=== PATIENT | male | born 1935 | race Caucasian/White ===

== ENCOUNTER 2018-02-22 06:39 | Day surgery (SDC) | payer MEDICARE, MEDICAID ==
[~2018-02-22 06:39] MED LIST: ACETAMINOPHEN 325 MG TAB PO; SLF 3 ML SYR IV
[2018-02-22] MEDS: BSS with VANC/TOB/EPI for EYE CASES IR ×2 (07:00)
[2018-02-22] MEDS ORDERED: PHENYLEPHRINE HCL 10 % OPHTH. SOL 5ML OS ×2 (07:00)
[2018-02-22] MEDS: SLF 3 ML SYR IV ×2 (07:15)
[2018-02-22] MEDS: LIDOCAINE 3.5 % 1ML OPHTH TOPICAL GEL OU ×2 (07:30)
[2018-02-22] MEDS: OFLOXACIN 0.3 % (OCUFLOX) OPTH SOL 5ML OS ×2 (07:35)
[2018-02-22] MEDS: TROPICAMIDE 1% OPHTH SOLN 2ML OS ×2 (07:35)
[2018-02-22] MEDS: PHENYLEPHRINE 2.5% OPHTH SOL 2ML OS ×2 (07:35)
[2018-02-22] MEDS: CYCLOPENTOLATE 2% OPHTH SOLN 2ML BTL OS ×2 (07:35)
[2018-02-22] MEDS ORDERED: MIDAZOLAM INJ 2 MG/2 ML VIAL (J2250) As Ordered ×2 (08:30)
[2018-02-22] MEDS ORDERED: fentaNYL 100 MCG/2 ML INJECTION (J3010) As Ordered ×2 (08:30)
[2018-02-22] MEDS: POVIDONE-IODINE 5% OPHTH PREP SOL 30ML As Ordered ×2 (08:30)
[2018-02-22] MEDS: TRIAMCINOLONE PRES FR 40 MG/ML 1ML(TRIESENCE)(OR EYE ONLY)(J3300 PER 1MG) As Ordered ×2 (08:38)
[2018-02-22] MEDS: HEALON DUET (HEALON 10MG/ML 0.55ML & HEALON ENDOCOAT 30MG/ML 0.85ML) As Ordered ×2 (08:38)
[2018-02-22] MEDS: MOXIFLOXACIN IN BSS 0.25MG/0.25ML INTRACAMERAL INJ (OR EYE ONLY)(J2280) As Ordered (08:38)
[2018-02-22] MEDS: LIDOCAINE 1% SDV 5 ML VIAL As Ordered ×2 (08:38)
[2018-02-22] MEDS ORDERED: TRIMETHOBENZAMIDE 300 MG CAP PO ×2 (09:15)
[2018-02-22] MEDS ORDERED: AcetaZOLAMIDE 500 MG ER CAP PO ×2 (09:15)
[2018-02-26 10:26] LABS: BEDSIDE GLUCOSE 129 MG/DL (83-110)
== END 2018-02-22 09:45 | disposition home or self-care (01) ==
LOC: M SDC 06:39
DX: H25.9 Unspecified age-related cataract (principal); H57.03 Miosis; H21.81 Floppy iris syndrome; I10 Essential (primary) hypertension; E11.9 Type 2 diabetes mellitus without complications; E78.5 Hyperlipidemia, unspecified; Z79.82 Long term (current) use of aspirin; Z79.899 Other long term (current) drug therapy
CPT/HCPCS: 66982

== ENCOUNTER → 2023-08-09 | Outpatient (REF) | payer OTHER, MEDICAID ==
[~2023-08-09] MED LIST changes: +ACCU5TAB7 PO; -ACETAMINOPHEN 325 MG TAB PO; +ANTI25TA PO; +ASPI81TA85 PO; +DOCU5LIQ PO; +FLOM0.4C39 PO; +FOLI1TAB86 PO; +GLIP5TAB20; +GLUC500T PO; +LEVO75TA6 PO; +OMEP40CA4 PO; -SLF 3 ML SYR IV; +TRAD5TAB PO; +VITA50005; +ZOCO20TA PO
== END ==
LOC: M SFHCDERM 13:57
PROVIDERS: ATTEND Physician Assistant
DX: D04.39 Carcinoma in situ of skin of other parts of face (principal)

== ENCOUNTER → 2024-01-31 | Outpatient (CLI) | payer OTHER, MEDICAID | LOC: M ONCR 14:33 | PROVIDERS: ATTEND General Practice | DX: C44.319 Basal cell carcinoma of skin of other parts of face (principal); D04.39 Carcinoma in situ of skin of other parts of face; Z71.2 Person consulting for explanation of examination or test findings; Z79.82 Long term (current) use of aspirin; Z79.84 Long term (current) use of oral hypoglycemic drugs; Z79.890 Hormone replacement therapy; Z79.899 Other long term (current) drug therapy ==

== ENCOUNTER 2024-02-09 13:44 | Outpatient (RCR) | payer OTHER, MEDICAID | END 2024-03-09 | LOC: M ONCR 13:44 | PROVIDERS: ATTEND General Practice | DX: Z51.0 Encounter for antineoplastic radiation therapy (principal); C44.319 Basal cell carcinoma of skin of other parts of face ==

== ENCOUNTER 2024-03-16 14:15 | Outpatient (RCR) | payer OTHER, MEDICAID | END 2024-04-08 | LOC: M ONCR 14:15 | PROVIDERS: ATTEND General Practice | DX: Z51.0 Encounter for antineoplastic radiation therapy (principal); C44.319 Basal cell carcinoma of skin of other parts of face ==

== ENCOUNTER → 2024-03-29 | Outpatient (CLI) | payer OTHER, MEDICAID | LOC: M ONCR 13:00 | PROVIDERS: ATTEND General Practice | DX: C44.319 Basal cell carcinoma of skin of other parts of face (principal); C44.329 Squamous cell carcinoma of skin of other parts of face; Z92.3 Personal history of irradiation; Z71.2 Person consulting for explanation of examination or test findings; Z79.890 Hormone replacement therapy; Z79.899 Other long term (current) drug therapy; Z79.82 Long term (current) use of aspirin ==

== ENCOUNTER → 2024-04-17 | Outpatient (CLI) | payer OTHER, MEDICAID | LOC: M ONCR 15:08 | PROVIDERS: ATTEND General Practice | DX: C44.319 Basal cell carcinoma of skin of other parts of face (principal) ==

== ENCOUNTER 2024-07-13 12:07 | Inpatient (IN) | payer OTHER, MEDICAID ==
[~2024-07-13] VITALS: Ht 167.6 cm; Wt 53.9 kg
[2024-07-13] VITALS (11 sets, daily range): BP systolic 85–128; BP diastolic 49–70; TEMP 97.2–98; O2SAT 82–97
[2024-07-13 13:11] LABS: BASO % 0.2 % (0.0-1.0); HEMATOCRIT 40.5 % (42.0-52.0); HEMOGLOBIN 13.3 g/dl (13.5-17.5); LYMPH # 0.9 10^3/uL (1.5-5.0); LYMPH % 5.8 % (24.0-44.0); MEAN CORPUSCULAR HEMOGLOBIN 29.9 pg (27.0-33.0); MEAN CORPUSCULAR HGB CONC 32.8 g/dl (32.0-36.5); MONO # 1.6 10^3/uL (0.0-0.8); MONO % 10.7 % (2.0-8.0); NEUTROPHILS # 12.2 10^3/uL (1.5-8.5); NEUTROPHILS % 82.1 % (36.0-66.0); PLATELET COUNT, AUTOMATED 233 10^3/uL (150-450); RED BLOOD COUNT 4.45 10^6/uL (4.30-6.10); WHITE BLOOD COUNT 14.9 10^3/uL (4.0-10.0)
[2024-07-13 13:11] LABS: VENOUS HCO3 16.9 MMOL/L (23.0-27.0); VENOUS O2 SATURATION 83.3 % (60.0-80.0); VENOUS PARTIAL PRESSURE CO2 40.6 mmHg (38.0-50.0); VENOUS PARTIAL PRESSURE O2 53.6 mmHg (30.0-50.0); VENOUS PH 7.237 UNITS (7.330-7.430); VENOUS STANDARD HCO3 16.4 MMOL/L; VENOUS TOTAL CO2 18.1 MMOL/L (24.0-28.0)
[2024-07-13 14:14] LABS: HEMOGLOBIN A1c > 14.0 % (4.0-6.0)
[2024-07-13 14:24] LABS: CK-MB VALUE MASS 34.4 NG/ML (<3.6); ETHYL ALCOHOL (ETHANOL) < 0.003 % (0.000-0.010)
[2024-07-13] MEDS ORDERED: SEMA14TA2 PO (14:25)
[2024-07-13] MEDS ORDERED: GLIP2.5T6 PO (14:25)
[2024-07-13] MEDS ORDERED: ALEN70TA87 PO (14:25)
[2024-07-13] MEDS ORDERED: LEVO100T5 PO (14:25)
[2024-07-13] MEDS ORDERED: SIMV20TA22 PO (14:25)
[2024-07-13] MEDS ORDERED: TAMS1CAP17 PO (14:25)
[2024-07-13] MEDS ORDERED: METF-838 PO (14:25)
[2024-07-13 14:28] LABS: THYROID STIMULATING HORMONE 5.664 uIU/ML (0.55-4.78)
[2024-07-13 14:47] LABS: ACETONE/KETONE > 4.50 MMOL/L (0.02-0.27); ALBUMIN 3.9 G/DL (3.2-5.2); ALKALINE PHOSPHATASE 133 U/L (46-116); ALT/SGPT 75 U/L (7.0-40); AST/SGOT 143 U/L (<34); BILIRUBIN,DIRECT 0.4 MG/DL (<0.4); BILIRUBIN,TOTAL 1.6 MG/DL (0.3-1.2); BLOOD UREA NITROGEN 80 MG/DL (9-23); CALCIUM LEVEL 10.7 MG/DL (8.3-10.6); CARBON DIOXIDE LEVEL 23 MMOL/L (20-31); CHLORIDE LEVEL 98 MMOL/L (98-107); CPK CREATINE PHOSPHOKINASE 7109 U/L (46-171); CREATININE FOR GFR 1.99 MG/DL (0.70-1.30); GLOMERULAR FILTRATION RATE 33.9 (>35); GLUCOSE, FASTING 664 MG/DL (74-106); MB/CK RELATIVE INDEX 0.48 (< OR =4); POTASSIUM SERUM 5.2 MMOL/L (3.5-5.1); SODIUM LEVEL 138 MMOL/L (136-145); TOTAL PROTEIN 7.2 G/DL (5.7-8.2)
[2024-07-13] MEDS ORDERED: INSULIN IV RATE CHANGE DOCUMENTATION ML/HR XX SCH (14:55)
[2024-07-13] MEDS: HumuLIN R (REGULAR) INSULIN (NovoLIN R) **100U/ML** PER UNIT IV ONE (15:10)
[2024-07-13] MEDS: INSULIN REGULAR IN 0.9 % NACL 100 UNIT in IV 1 EA IV SCH (15:14)
[2024-07-13] MEDS ORDERED: ALBUTEROL SULFATE 2.5MG/0.5ML INH NEB SOLN NEB PRN (15:30)
[2024-07-13] MEDS ORDERED: HOME MED LIST COMPLETE! XX SCH (15:55)
[2024-07-13] MEDS: LR 1,000 ML IV ONE (16:29)
[2024-07-13] MEDS: KCL 20MEQ IN 0.45NS 1000ML 1,000 ML IV SCH (17:40)
[2024-07-13 18:34] LABS: VENOUS BASE EXCESS -5.4 (-2.0-2.0); VENOUS HCO3 21.2 MMOL/L (23.0-27.0); VENOUS O2 SATURATION 98.7 % (60.0-80.0); VENOUS PARTIAL PRESSURE O2 161.8 mmHg (30.0-50.0); VENOUS STANDARD HCO3 20.1 MMOL/L; VENOUS TOTAL CO2 22.5 MMOL/L (24.0-28.0)
[2024-07-13 19:03] LABS: CALCIUM LEVEL 10.9 MG/DL (8.3-10.6); CREATININE FOR GFR 1.95 MG/DL (0.70-1.30); GLOMERULAR FILTRATION RATE 34.7 (>35); POTASSIUM SERUM 4.7 MMOL/L (3.5-5.1)
[2024-07-13 20:03] LABS: PHOSPHORUS LEVEL 7.7 MG/DL (2.4-5.1)
[2024-07-13] MEDS: LEVEMIR (INSULIN DETEMIR) 1 UNITS/0.01ML SC SCH (21:10)
[2024-07-13] MEDS: HEPARIN SOD (PORCINE) 5000UNITS/ML 1ML VIAL/SYRINGE SC SCH (21:10)
[2024-07-13] MEDS ORDERED: DEXTROSE 50% 50ML SYRINGE As Ordered ONE (22:12)
[2024-07-13] MEDS ORDERED: GLUCOSE 4 GM CHEW PO PRN (22:15)
[2024-07-13] MEDS: DEXTROSE 50% 50ML SYRINGE IV ONE (22:15)
[2024-07-13] MEDS ORDERED: GLUCAGON INJ 1MG VIAL SC PRN (22:15)
[2024-07-13 22:19] LABS: CALCIUM LEVEL 10.6 MG/DL (8.3-10.6); CREATININE FOR GFR 1.87 MG/DL (0.70-1.30); GLOMERULAR FILTRATION RATE 36.4 (>35); POTASSIUM SERUM 4.5 MMOL/L (3.5-5.1)
[2024-07-13] MEDS: DEXTROSE 50% 50ML SYRINGE IV PRN (22:19)
[2024-07-13] MEDS: KCL 40MEQ IN D5/0.45NS 1000ML 1,000 ML IV SCH (22:53)
[2024-07-13] MEDS ORDERED: POTASSIUM CHLORIDE INJ 40 MEQ in D5W/LR 1,000 ML IV SCH (23:00)
[2024-07-14] VITALS (9 sets, daily range): BP systolic 96–125; BP diastolic 54–92; TEMP 97.2–99.4; O2SAT 96–97
[2024-07-14 00:33] LABS: CREATININE FOR GFR 1.84 MG/DL (0.70-1.30); GLOMERULAR FILTRATION RATE 37.1 (>35); POTASSIUM SERUM 4.4 MMOL/L (3.5-5.1)
[2024-07-14 03:43] LABS: CALCIUM LEVEL 9.3 MG/DL (8.3-10.6); CREATININE FOR GFR 1.79 MG/DL (0.70-1.30); GLOMERULAR FILTRATION RATE 38.3 (>35); POTASSIUM SERUM 4.9 MMOL/L (3.5-5.1)
[2024-07-14 06:05] LABS: HEMOGLOBIN 11.5 g/dl (13.5-17.5); MEAN CORPUSCULAR HEMOGLOBIN 28.8 pg (27.0-33.0); MEAN CORPUSCULAR HGB CONC 31.9 g/dl (32.0-36.5); MEAN CORPUSCULAR VOLUME 90.2 fl (80.0-96.0); PLATELET COUNT, AUTOMATED 201 10^3/uL (150-450); RED BLOOD COUNT 3.99 10^6/uL (4.30-6.10); WHITE BLOOD COUNT 13.3 10^3/uL (4.0-10.0)
[2024-07-14 06:56] LABS: BILIRUBIN,TOTAL 1.1 MG/DL (0.3-1.2); CALCIUM LEVEL 8.9 MG/DL (8.3-10.6); CREATININE FOR GFR 1.66 MG/DL (0.70-1.30); GLOMERULAR FILTRATION RATE 41.7 (>35); POTASSIUM SERUM 5.3 MMOL/L (3.5-5.1); TOTAL PROTEIN 5.8 G/DL (5.7-8.2)
[2024-07-14] MEDS: D5W/LR 1,000 ML IV SCH (07:15)
[2024-07-14] MEDS: INSULIN LISPRO (NovoLOG) PER UNIT SC SCH ×2 (08:41→20:36)
[2024-07-14] MEDS: LEVEMIR (INSULIN DETEMIR) 1 UNITS/0.01ML SC SCH ×2 (08:41→21:00)
[2024-07-14] MEDS: LR 1,000 ML IV SCH (08:42)
[2024-07-14 10:47] LABS: CALCIUM LEVEL 8.6 MG/DL (8.3-10.6); CREATININE FOR GFR 1.58 MG/DL (0.70-1.30); GLOMERULAR FILTRATION RATE 44.2 (>35); POTASSIUM SERUM 4.9 MMOL/L (3.5-5.1)
[2024-07-14] MEDS: LEVOTHYROXINE 100MCG (0.1MG) 5ML SDV PF (SOLUTION FORM) IV SCH (18:12)
[2024-07-15] VITALS (7 sets, daily range): BP systolic 94–120; BP diastolic 52–60; TEMP 97.6–98.6; O2SAT 93–99
[2024-07-15] MEDS: D5W/LR 1,000 ML IV SCH (04:20)
[2024-07-15] MEDS: DEXTROSE 50% 50ML SYRINGE IV STA (04:24)
[2024-07-15 04:52] LABS: HEMATOCRIT 33.6 % (42.0-52.0); HEMOGLOBIN 10.8 g/dl (13.5-17.5); MEAN CORPUSCULAR HEMOGLOBIN 29.3 pg (27.0-33.0); MEAN CORPUSCULAR HGB CONC 32.1 g/dl (32.0-36.5); MEAN CORPUSCULAR VOLUME 91.3 fl (80.0-96.0); PLATELET COUNT, AUTOMATED 168 10^3/uL (150-450); RED BLOOD COUNT 3.68 10^6/uL (4.30-6.10); WHITE BLOOD COUNT 10.8 10^3/uL (4.0-10.0)
[2024-07-15 05:36] LABS: ALBUMIN 2.7 G/DL (3.2-5.2); ALKALINE PHOSPHATASE 80 U/L (46-116); ALT/SGPT 56 U/L (7.0-40); AST/SGOT 114 U/L (<34); BILIRUBIN,TOTAL 1.3 MG/DL (0.3-1.2); BLOOD UREA NITROGEN 47 MG/DL (9-23); CALCIUM LEVEL 8.5 MG/DL (8.3-10.6); CARBON DIOXIDE LEVEL 30 MMOL/L (20-31); CHLORIDE LEVEL 108 MMOL/L (98-107); CPK CREATINE PHOSPHOKINASE 1959 U/L (46-171); CREATININE FOR GFR 1.05 MG/DL (0.70-1.30); GLOMERULAR FILTRATION RATE > 60.0 (>35); GLUCOSE, FASTING 163 MG/DL (74-106); SODIUM LEVEL 141 MMOL/L (136-145); TOTAL PROTEIN 5.3 G/DL (5.7-8.2)
[2024-07-15] MEDS: LEVEMIR (INSULIN DETEMIR) 1 UNITS/0.01ML SC SCH (09:29)
[2024-07-15] MEDS: INSULIN LISPRO (NovoLOG) PER UNIT SC SCH ×2 (12:33→21:00)
[2024-07-16 03:48] VITALS: BP 113/57; TEMP 97.4; O2SAT 96
[2024-07-16 08:00] VITALS: BP 100/60; TEMP 98; O2SAT 96
[2024-07-16 12:00] VITALS: BP 106/57; TEMP 97.1; O2SAT 96
[2024-07-16 16:00] VITALS: BP 104/56; TEMP 97.3; O2SAT 96
[2024-07-16 20:21] VITALS: BP 108/57; TEMP 97.3; O2SAT 97
[2024-07-16] MEDS: SIMVASTATIN 20 MG TAB PO SCH (22:10)
[2024-07-16 23:27] VITALS: BP 116/59; TEMP 97.6; O2SAT 97
[2024-07-17 04:16] VITALS: BP 114/58; TEMP 98.1; O2SAT 97
[2024-07-17] MEDS: LEVOTHYROXINE 100MCG TABLET (0.1MG) PO SCH (05:17)
[2024-07-17 08:00] VITALS: BP_SYST 130; BP_SYST 153; BP_DIAS 67; BP_DIAS 87; TEMP 97.2; TEMP 97.9; O2SAT 96
[2024-07-17] MEDS: TAMSULOSIN 0.4 MG CAP PO SCH (08:19)
[2024-07-17] MEDS: LEVEMIR (INSULIN DETEMIR) 1 UNITS/0.01ML SC SCH ×2 (08:19→21:25)
[2024-07-17] MEDS ORDERED: LEVEMIR (INSULIN DETEMIR) 1 UNITS/0.01ML SC SCH ×2 (09:00→21:00)
[2024-07-17 11:41] VITALS: BP 111/56; O2SAT 97
[2024-07-17 11:48] VITALS: BP 147/70; TEMP 97.1; O2SAT 96
[2024-07-17] MEDS: glipiZIDE XL 5 MG TABCR PO SCH (13:28)
[2024-07-17 16:00] VITALS: BP 113/56; TEMP 97.5; O2SAT 96
[2024-07-17] MEDS: INSULIN LISPRO (NovoLOG) PER UNIT SC SCH (17:46)
[2024-07-17 19:00] VITALS: BP 124/61; TEMP 98; O2SAT 96
[2024-07-18 03:42] VITALS: BP 106/51; TEMP 97.6; O2SAT 96
[2024-07-18 07:21] LABS: BASO % 0.3 % (0.0-1.0); EOS # 0.2 10^3/uL (0.0-0.5); EOS % 1.6 % (0.0-3.0); HEMATOCRIT 34.4 % (42.0-52.0); HEMOGLOBIN 10.9 g/dl (13.5-17.5); LYMPH # 1.7 10^3/uL (1.5-5.0); MEAN CORPUSCULAR HEMOGLOBIN 29.3 pg (27.0-33.0); MEAN CORPUSCULAR HGB CONC 31.7 g/dl (32.0-36.5); MEAN CORPUSCULAR VOLUME 92.5 fl (80.0-96.0); MONO % 10.4 % (2.0-8.0); NEUTROPHILS # 6.7 10^3/uL (1.5-8.5); PLATELET COUNT, AUTOMATED 219 10^3/uL (150-450); RED BLOOD COUNT 3.72 10^6/uL (4.30-6.10); WHITE BLOOD COUNT 9.9 10^3/uL (4.0-10.0)
[2024-07-18 07:49] VITALS: BP 126/62; TEMP 98; O2SAT 94
[2024-07-18 07:49] LABS: BLOOD UREA NITROGEN 22 MG/DL (9-23); CALCIUM LEVEL 8.3 MG/DL (8.3-10.6); CARBON DIOXIDE LEVEL 31 MMOL/L (20-31); CHLORIDE LEVEL 106 MMOL/L (98-107); GLOMERULAR FILTRATION RATE > 60.0 (>35); GLUCOSE, FASTING 45 MG/DL (74-106); POTASSIUM SERUM 3.4 MMOL/L (3.5-5.1); SODIUM LEVEL 140 MMOL/L (136-145)
[2024-07-18] MEDS ORDERED: LEVEMIR (INSULIN DETEMIR) 1 UNITS/0.01ML SC SCH ×2 (09:00→21:00)
[2024-07-18] MEDS: HEPARIN SOD (PORCINE) 5000UNITS/ML 1ML VIAL/SYRINGE SC SCH (10:51)
[2024-07-18] MEDS: INSULIN LISPRO (NovoLOG) PER UNIT SC SCH (12:21)
[2024-07-18 16:00] VITALS: BP 110/55; TEMP 98.6; O2SAT 94
[2024-07-18] MEDS: MOM 30ML SUSPENSION UDC PO ONE (18:01)
[2024-07-18] MEDS: metFORMIN (GLUCOPHAGE) 500MG TAB PO SCH (18:01)
[2024-07-18 19:34] VITALS: BP 108/55; TEMP 98.5; O2SAT 96
[2024-07-18] MEDS: LEVEMIR (INSULIN DETEMIR) 1 UNITS/0.01ML SC SCH (20:52)
[2024-07-18] MEDS: SENOKOT S TAB PO SCH (20:52)
[2024-07-18 23:51] VITALS: BP 119/58; TEMP 98.1; O2SAT 98
[2024-07-19 03:47] VITALS: BP 117/59; TEMP 98.2; O2SAT 96
[2024-07-19 06:22] LABS: BASO % 0.4 % (0.0-1.0); EOS # 0.1 10^3/uL (0.0-0.5); EOS % 1.2 % (0.0-3.0); HEMATOCRIT 35.4 % (42.0-52.0); HEMOGLOBIN 11.1 g/dl (13.5-17.5); LYMPH # 1.1 10^3/uL (1.5-5.0); LYMPH % 14.5 % (24.0-44.0); MEAN CORPUSCULAR HEMOGLOBIN 29.1 pg (27.0-33.0); MEAN CORPUSCULAR HGB CONC 31.4 g/dl (32.0-36.5); MEAN CORPUSCULAR VOLUME 92.9 fl (80.0-96.0); MONO # 0.8 10^3/uL (0.0-0.8); MONO % 10.9 % (2.0-8.0); NEUTROPHILS # 5.3 10^3/uL (1.5-8.5); NEUTROPHILS % 70.2 % (36.0-66.0); PLATELET COUNT, AUTOMATED 213 10^3/uL (150-450); RED BLOOD COUNT 3.81 10^6/uL (4.30-6.10); WHITE BLOOD COUNT 7.6 10^3/uL (4.0-10.0)
[2024-07-19 06:50] LABS: BLOOD UREA NITROGEN 17 MG/DL (9-23); CALCIUM LEVEL 8.8 MG/DL (8.3-10.6); CARBON DIOXIDE LEVEL 31 MMOL/L (20-31); CHLORIDE LEVEL 104 MMOL/L (98-107); CREATININE FOR GFR 0.89 MG/DL (0.70-1.30); GLOMERULAR FILTRATION RATE > 60.0 (>35); GLUCOSE, FASTING 169 MG/DL (74-106); POTASSIUM SERUM 4.7 MMOL/L (3.5-5.1); SODIUM LEVEL 139 MMOL/L (136-145)
[2024-07-19 07:52] VITALS: BP 118/58; TEMP 98; O2SAT 98
[2024-07-19] MEDS ORDERED: LANTINJ4 SC (10:49)
[2024-07-19] MEDS ORDERED: LANC30MI XX (10:49)
[2024-07-19] MEDS ORDERED: ALCOPAD25 TOP (10:49)
[2024-07-19] MEDS ORDERED: BLOOKIT21 XX (10:49)
[2024-07-19] MEDS ORDERED: GLUC1TES2 XX (10:49)
[2024-07-19] MEDS ORDERED: PEN-308 SC (10:49)
[2024-07-19 12:00] VITALS: BP 116/60; TEMP 98.2; O2SAT 97
[2024-07-19] MEDS ORDERED: glipiZIDE XL 5 MG TABCR PO SCH (12:00)
[2024-07-19 15:02] VITALS: BP 112/62; TEMP 98.2; O2SAT 97
[2024-07-19] MEDS: MOM 30ML SUSPENSION UDC PO ONE (17:52)
[2024-07-19] MEDS: BISACODYL 10MG SUPP PR ONE (17:52)
[2024-07-19 20:26] VITALS: BP 111/63; TEMP 98.1; O2SAT 97
[2024-07-20 04:32] VITALS: BP 113/65; TEMP 98.1; O2SAT 96
[2024-07-20 06:43] LABS: BASO % 0.3 % (0.0-1.0); EOS # 0.3 10^3/uL (0.0-0.5); HEMATOCRIT 34.5 % (42.0-52.0); HEMOGLOBIN 10.8 g/dl (13.5-17.5); LYMPH % 14.7 % (24.0-44.0); MEAN CORPUSCULAR HEMOGLOBIN 29.3 pg (27.0-33.0); MEAN CORPUSCULAR HGB CONC 31.3 g/dl (32.0-36.5); MEAN CORPUSCULAR VOLUME 93.8 fl (80.0-96.0); MONO % 15.1 % (2.0-8.0); NEUTROPHILS # 4.1 10^3/uL (1.5-8.5); NEUTROPHILS % 61.9 % (36.0-66.0); PLATELET COUNT, AUTOMATED 237 10^3/uL (150-450); RED BLOOD COUNT 3.68 10^6/uL (4.30-6.10); WHITE BLOOD COUNT 6.5 10^3/uL (4.0-10.0)
[2024-07-20 06:53] LABS: BLOOD UREA NITROGEN 15 MG/DL (9-23); CALCIUM LEVEL 8.7 MG/DL (8.3-10.6); CARBON DIOXIDE LEVEL 32 MMOL/L (20-31); CHLORIDE LEVEL 108 MMOL/L (98-107); CREATININE FOR GFR 0.86 MG/DL (0.70-1.30); GLOMERULAR FILTRATION RATE > 60.0 (>35); GLUCOSE, FASTING 61 MG/DL (74-106); POTASSIUM SERUM 4.2 MMOL/L (3.5-5.1); SODIUM LEVEL 139 MMOL/L (136-145)
[2024-07-20] MEDS: metFORMIN (GLUCOPHAGE) 500MG TAB PO SCH ×2 (13:30→17:23)
[2024-07-20 20:58] VITALS: BP 122/63; TEMP 97.7; O2SAT 96
[2024-07-21 04:00] VITALS: BP 119/64; TEMP 97.7; O2SAT 96
[2024-07-21 07:12] LABS: BASO % 0.2 % (0.0-1.0); EOS # 0.1 10^3/uL (0.0-0.5); EOS % 1.1 % (0.0-3.0); HEMATOCRIT 33.3 % (42.0-52.0); HEMOGLOBIN 10.6 g/dl (13.5-17.5); LYMPH # 0.6 10^3/uL (1.5-5.0); LYMPH % 6.9 % (24.0-44.0); MEAN CORPUSCULAR HEMOGLOBIN 29.4 pg (27.0-33.0); MEAN CORPUSCULAR HGB CONC 31.8 g/dl (32.0-36.5); MEAN CORPUSCULAR VOLUME 92.2 fl (80.0-96.0); MONO # 1.2 10^3/uL (0.0-0.8); MONO % 13.5 % (2.0-8.0); NEUTROPHILS % 76.6 % (36.0-66.0); PLATELET COUNT, AUTOMATED 252 10^3/uL (150-450); RED BLOOD COUNT 3.61 10^6/uL (4.30-6.10); WHITE BLOOD COUNT 9.1 10^3/uL (4.0-10.0)
[2024-07-21 07:36] LABS: BLOOD UREA NITROGEN 18 MG/DL (9-23); CALCIUM LEVEL 9.1 MG/DL (8.3-10.6); CARBON DIOXIDE LEVEL 31 MMOL/L (20-31); CHLORIDE LEVEL 101 MMOL/L (98-107); CREATININE FOR GFR 0.88 MG/DL (0.70-1.30); GLOMERULAR FILTRATION RATE > 60.0 (>35); GLUCOSE, FASTING 251 MG/DL (74-106); POTASSIUM SERUM 4.5 MMOL/L (3.5-5.1); SODIUM LEVEL 136 MMOL/L (136-145)
[2024-07-21] MEDS ORDERED: SEMA3TAB4 PO (08:49)
[2024-07-21] MEDS ORDERED: SEMA7TAB2 PO (08:49)
[2024-07-21] MEDS ORDERED: SEMA14TA2 PO (08:49)
[2024-07-21] MEDS ORDERED: METF500T13 PO (08:49)
== END 2024-07-21 13:00 | disposition home or self-care (01) | DRG 637 ==
LOC: M ED 12:07 → EDUNIT# 12:07 → EDBD 12:07 → M ED INP 15:15 → M ICU 16:23 → M PCU 07-15 11:30 → M MS5PR 07-19 15:30
PROVIDERS: ADMIT Internal Medicine Pulmonary Disease; ATTEND Internal Medicine Nephrology
DX: E11.10 Type 2 diabetes mellitus with ketoacidosis without coma (principal); G93.41 Metabolic encephalopathy; M62.82 Rhabdomyolysis; N17.9 Acute kidney failure, unspecified; E03.9 Hypothyroidism, unspecified; K21.9 Gastro-esophageal reflux disease without esophagitis; I25.10 Atherosclerotic heart disease of native coronary artery without angina pectoris; R13.10 Dysphagia, unspecified; E11.649 Type 2 diabetes mellitus with hypoglycemia without coma; N40.0 Benign prostatic hyperplasia without lower urinary tract symptoms; E78.5 Hyperlipidemia, unspecified; Z85.828 Personal history of other malignant neoplasm of skin; Z79.899 Other long term (current) drug therapy; Z79.4 Long term (current) use of insulin; Z66 Do not resuscitate